=== PATIENT | female | born 2000 | race Caucasian/White ===

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

== ENCOUNTER → 2021-04-14 | Outpatient (CLI) | payer BC | LOC: RAD 10:29 | DX: R10.9 Unspecified abdominal pain (principal) ==

== ENCOUNTER → 2021-08-27 | Outpatient (CLI) | payer BC | LOC: LAB 08:18 | DX: B34.9 Viral infection, unspecified (principal); Z20.822 Contact with and (suspected) exposure to COVID-19 ==

== ENCOUNTER → 2021-10-20 | Outpatient (CLI) | payer BC | LOC: LAB 11:36 | DX: L70.0 Acne vulgaris (principal) ==